=== PATIENT | male | born 1975 | race Caucasian/White ===

== ENCOUNTER 2024-01-31 19:50 | Emergency (ER) | payer OTHER ==
[2024-01-31 19:55] VITALS: TEMP 97.5
--- NOTE | 2024-01-31 20:16 | ED ---
Fall HPI - General Source: patient, RN notes reviewed Mode of arrival: ambulatory <Kathryn Wylie - Last Filed: 02/01/24 23:55> <Iliana Hatfield - Last Filed: 02/03/24 08:34> - General Chief Complaint: Fall Stated Complaint: R arm injury Time Seen by Provider: 01/31/24 20:08 - History of Present Illness Initial Comments: This is a 48-year-old male presents emergency department chief complaint of a injury to the right humerus. Patient states he was skateboarding when he went up a wrap and fell down injuring and falling onto his right arm. Patient denies hitting his head or loss of consciousness at the time of fall. Patient states that he is able to move his wrist and his hand, and he has intact sensation over the right upper extremity. Patient has severe pain over the right humerus. Denies shortness of breath, difficulty breathing, chest pain, chest pressure, heart palpitations, dizziness, lightheadedness. He denies other bony complaints at this time. (Kathryn Wylie) - Related Data Home Medications Medication Instructions Recorded Confirmed Amoxicillin/Potassium Clav 1 tab PO BID 01/27/16 01/27/16 [Amox-Clav 875-125 mg Tablet] Multivitamin [Men's Multi-Vitamin] 1 tab PO DAILY 01/27/16 01/27/16 Naproxen 500 mg PO Q12HR PRN 01/27/16 01/27/16 lisinopriL [Zestril] 20 mg PO DAILY 01/27/16 01/27/16 Zolpidem [Ambien] 10 mg PO HS PRN 01/28/16 01/28/16 Previous Rx's Medication Instructions Recorded Amoxic-Pot Clav 875-125Mg 1 tab PO Q12HR #28 tablet 01/30/16 [Augmentin 875-125] Aspirin 325 mg PO BID #60 tab 01/30/16 Docusate [Colace] 100 mg PO BID #60 capsule 01/30/16 HYDROcodone/APAP 10-325MG [[place] 1 - 2 each PO Q6H PRN #90 tab 01/30/16 10] Zolpidem Tartrate [Ambien] 5 mg PO HS PRN #2 tab 01/30/16 diazePAM [Valium] 5 mg PO TID PRN #40 tab 01/30/16 polyethylene glycoL 3350 [Miralax] 17 gm PO DAILY PRN #14 packet 01/30/16 oxyCODONE HCL/ACETAMINOPHEN 1 tab PO Q4HR PRN 3 Days #18 tab 01/31/24 [Percocet 5-325 mg] Allergies Allergy/AdvReac Type Severity Reaction Status Date / Time No Known Allergies Allergy Verified 01/31/24 19:55 Review of Systems ROS Other: All systems not noted in ROS Statement are negative. <Kathryn Wylie - Last Filed: 02/01/24 23:55> ROS Other: All systems not noted in ROS Statement are negative. <Iliana Hatfield - Last Filed: 02/03/24 08:34> ROS Statement: Those systems with pertinent positive or pertinent negative responses have been documented in the HPI. Past Medical History Past Medical History: Hypertension Additional Past Medical History / Comment(s): vascular insuffieciency History of Any Multi-Drug Resistant Organisms: None Reported Past Surgical History: Appendectomy Additional Past Surgical History / Comment(s): facial reconstruction, wisdom teeth removed Past Psychological History: No Psychological Hx Reported Past Alcohol Use History: None Reported Past Drug Use History: None Reported <Kathryn Wylie - Last Filed: 02/01/24 23:55> General Exam Limitations: no limitations General appearance: alert, in no apparent distress Head exam: Present: atraumatic, normocephalic, normal inspection Eye exam: Present: normal appearance, PERRL, EOMI. Absent: scleral icterus, conjunctival injection, periorbital swelling ENT exam: Present: normal exam, mucous membranes moist Neck exam: Present: normal inspection. Absent: tenderness, meningismus, lymphadenopathy Respiratory exam: Present: normal lung sounds bilaterally. Absent: respiratory distress, wheezes, rales, rhonchi, stridor Cardiovascular Exam: Present: regular rate, normal rhythm, normal heart sounds. Absent: systolic murmur, diastolic murmur, rubs, gallop, clicks GI/Abdominal exam: Present: soft, normal bowel sounds. Absent: distended, tenderness, guarding, rebound, rigid Right Shoulder Exam: Present: tenderness (unable to assess ROM of shoulder due to pain in humerus). Absent: full ROM Upper Arm exam: Present: tenderness, swelling, deformity (anterior swelling). Absent: normal inspection, full ROM, abrasion, laceration, ecchymosis, crepidus Elbow exam: Present: abrasion (0.5 cm abrasion to olecranon), pain w/ pronation/supination. Absent: full ROM (unable to assess), tenderness, swelling Forearm Wrist exam: Present: normal inspection, full ROM. Absent: tenderness, swelling, abrasion Hand Wrist exam: Present: normal inspection, full ROM. Absent: tenderness, swelling, abrasion Neuro motor exam: Present: wrist extension intact, thumb opposition intact Neurosensory exam: Present: 2-point discrimination, radial nerve intact Vascular: Present: vascular compromise, normal capillary refill, radial pulse (2+) Back exam: Present: normal inspection Neurological exam: Present: alert, oriented X3, CN II-XII intact Psychiatric exam: Present: normal affect, normal mood Skin exam: Present: warm, dry, intact, normal color. Absent: rash <Kathryn Wylie - Last Filed: 02/01/24 23:55> Course Vital Signs 01/31/24 01/31/24 01/31/24 19:52 23:13 23:36 Temperature 97.5 F L Pulse Rate 88 72 68 Respiratory 18 16 16 Rate Blood Pressure 141/89 123/87 121/75 O2 Sat by Pulse 96 95 95 Oximetry Procedures - Orthopedic Splinting/Casting Injury #1 Side: right Upper Extremity Injury Location: long arm (copatation splint) Upper Extremity Immobilizer: sling/shoulder immobilizer, Tremaine wrap, synthetic pre-padded splint <Kathryn Wylie - Last Filed: 02/01/24 23:55> Medical Decision Making <Kathryn Wylie - Last Filed: 02/01/24 23:55> <Iliana Hatfield - Last Filed: 02/03/24 08:34> - Medical Decision Making Was pt. sent in by a medical professional or institution (, PA, [employer]ER, urgent care, hospital, or group home...) When possible be specific @ -No Did you speak to anyone other than the patient for history (EMS, parent, family, police, friend...)? What history was obtained from this source @ -No Did you review nursing and triage notes (agree or disagree)? Why? @ -I reviewed and agree with nursing and triage notes Were old charts reviewed (outside hosp., previous admission, EMS record, old EKG, old radiological studies, urgent care reports/EKG's, group home records)? Report findings @ -No old charts were reviewed Differential Diagnosis (chest pain, altered mental status, abdominal pain women, abdominal pain men, vaginal bleeding, weakness, fever, dyspnea, syncope, headache, dizziness, GI bleed, back pain, seizure, CVA, palpatations, mental health, musculoskeletal)? @ -Differential Musculoskeletal Muscular strain, contusion, ligament sprain, fracture, arthritis, septic arthritis, bursitis, cellulitis, muscle spasm, nerve compression, DVT, arterial occlusion, herpes zoster, electrolyte abnormality, tumor.... This is not meant to be in all inclusive list EKG interpreted by me (3pts min.). @ -none X-rays interpreted by me (1pt min.). @ -X-ray of the right humerus reveals a complex fracture of the right humerus transverse complete fracture at the junction of the distal one third and proximal two thirds, distraction at the fracture medial angulation with 16 mm lateral displacement. xray of the forearm no acute process. CT interpreted by me (1pt min.). @ -None done U/S interpreted by me (1pt. min.). @ -None done What testing was considered but not performed or refused? (CT, X-rays, U/S, labs)? Why? @ -None What meds were considered but not given or refused? Why? @ -None Did you discuss the management of the patient with other professionals (professionals i.e. , PA, [employer], lab, RT, psych nurse, criminal justice social worker, trailer steerer, teacher, court collections officer, case management assistant)? Give summary @ -Old to on-call special forces specialist, Dr. Coughlin, in regard to the patient's presentation and x-ray findings. Expressed that patient is neurovascularly intact and pain has been moderately well-controlled with medication here. They stated that patient is stable for discharge recommend that he follow-up outpatient Friday for further evaluation. Was recommended that he be placed in a coaptation splint for stabilization and placed in a sling. Was smoking cessation discussed for >3mins.? @ -No Was critical care preformed (if so, how long)? @ -No Were there social determinants of health that impacted care today? How? (Homelessness, low income, unemployed, alcoholism, drug addiction, transportation, low edu. Level, literacy, decrease access to med. care, alf, rehab)? @ -No Was there de-escalation of care discussed even if they declined (Discuss DNR or withdrawal of care, Hospice)? DNR status @ -No What co-morbidities impacted this encounter? (DM, HTN, Smoking, COPD, CAD, Cancer, CVA, ARF, Chemo, Hep., AIDS, mental health diagnosis, sleep apnea, morbid obesity)? @ -None Was patient admitted / discharged? Hospital course, mention meds given and route, prescriptions, significant lab abnormalities, going to OR and other pertinent info. @ -Discharge. 48-year-old male with right arm injury. On examination there is noted deformity of the right upper extremity with swelling to the mid humerus. Patient is neurovascularly intact to the humerus, forearm, hand and digits. Radial pulse 2+. Unable to assess range of motion of the elbow, humerus, shoulder due to pain. Patient is able to flex extend and perform opposition of the right hand. He is provided with pain medication pending results of x-ray. X-ray concerning for complex fracture of the right humerus. Patient was provided with medications including Versed and fentanyl during completion of placement of a coaptation splint. Patient handled procedure well. He is placed in a sling. Patient provided with dose of Valium before discharge and sent pain medication. Strict return parameters treva with the patient to report back to the emergency department, he is verbalized understanding. All questions answered at bedside. Patient is from out of town and states that he has an special forces specialist that he will follow-up with him in his home on Friday. Case discussed with orthopedic attending, Dr. Coughlin, who states that the patient is stable for discharge after being placed in a splint and sling. Splinting was done and assistance with my attending, Dr. Hatfield, patient handled well. Undiagnosed new problem with uncertain prognosis? @ -No Drug Therapy requiring intensive monitoring for toxicity (Heparin, Nitro, Insulin, Cardizem)? @ -No Were any procedures done? @ -coaptation splint Diagnosis/symptom? @ -humeral fracture Acute, or Chronic, or Acute on Chronic? @ -acute Uncomplicated (without systemic symptoms) or Complicated (systemic symptoms)? @ -complicated Side effects of treatment? @ -No Exacerbation, Progression, or Severe Exacerbation? @ -No Poses a threat to life or bodily function? How? (Chest pain, [place], [place], pneumonia, PE, COPD, DKA, ARF, appy, cholecystitis, CVA, Diverticulitis, Homicidal, Suicidal, threat to staff... and all critical care pts) @ -No (Kathryn Wylie) Assisted in placing coaptation splint with PA. Patient remained neurovascuarly intact after splint placement (sensation to light touch intact, able to move fingers, 2+ radial pulse palpated). (Iliana Hatfield) Disposition Is patient prescribed a controlled substance at d/c from ED?: No Time of Disposition: 22:08 <Kathryn Wylie - Last Filed: 02/01/24 23:55> <Iliana Hatfield - Last Filed: 02/03/24 08:34> Clinical Impression: Humeral fracture Disposition: HOME SELF-CARE Condition: Good Instructions (If sedation given, give patient instructions): Arm Fracture in Adults (DC) Additional Instructions: Return to the emergency department for any new or worsening symptoms. Follow-up with special forces specialist next week for further evaluation. Take pain medication as needed. Keep arm in sling and splint until follow-up with orthopedics. Prescriptions: oxyCODONE HCL/ACETAMINOPHEN [Percocet 5-325 mg] 1 tab PO Q4HR PRN 3 Days #18 tab PRN Reason: Pain Referrals: Nonstaff,Physician [Primary Care Provider] - 1-2 days
[2024-01-31] MEDS: HYDROmorphone 1 MG/ML 1 ML SYRINGE IM STA ×2 (20:40→21:53)
--- NOTE | 2024-01-31 21:41 | XR ---
EXAMINATION TYPE: XR humerus RT DATE OF EXAM: 01/31/2024 9:00 PM CLINICAL INDICATION:Male, 48 years old with history of pain, deformity, injury; [facility] COMPARISON: TECHNIQUE: XR humerus RT examined in frontal and lateral projections. FINDINGS: Nearly transverse complete fracture is seen of the humerus at the junction of the distal on e third and proximal two thirds. There is distraction at the fracture and medial angulation. There is 16 mm lateral displacement. The remaining portions of the visualized chest are unremarkable. IMPRESSION: Complex fracture of the right humerus
--- NOTE | 2024-01-31 21:44 | XR ---
EXAMINATION TYPE: XR forearm RT DATE OF EXAM: 01/31/2024 9:00 PM CLINICAL INDICATION:Male, 48 years old with history of pain, deformity, injury; [facility] COMPARISON: TECHNIQUE: XR forearm RT; forearm was examined in AP and lateral projections. FINDINGS: No acute osseous pathology, soft tissue swelling or joint dislocations are seen. IMPRESSION: No evidence of acute fracture.
[2024-01-31] MEDS: fentaNYL (PF) 50 MCG/ML 2 ML AMP IVP STA (22:45)
[2024-01-31] MEDS: MIDAZOLAM 1 MG/ML 5 ML VIAL IV STA (22:45)
[2024-01-31 23:14] VITALS: RESP 16
[2024-01-31] MEDS: ACET/COD 300 MG/30 MG STARTER PACK 6 TAB BTL PO STA (23:19)
[2024-01-31 23:37] VITALS: BP 121/75; PULSE 68
== END 2024-01-31 23:37 | disposition home or self-care (01) ==
LOC: EC 19:50
DX: S42.301A Unspecified fracture of shaft of humerus, right arm, initial encounter for closed fracture (principal); V00.131A Fall from skateboard, initial encounter; Y93.51 Activity, roller skating (inline) and skateboarding
CPT/HCPCS: 99283; 96374; 96375 ×2; 96372 ×2; 29105; 73060; 73090; J3360; J2250; J3010; J1170